=== PATIENT | female | born 1955 | race Caucasian/White ===

== ENCOUNTER 2017-02-18 10:34 | Observation (INO) | payer OTHER ==
[2017-02-18] VITALS (9 sets, daily range): BP systolic 114–150; BP diastolic 76–95; PULSE 14–107; RESP 14–26; O2SAT 95–98
[~2017-02-18] VITALS: Ht 168.9 cm; Wt 70.8 kg
[~2017-02-18 10:34] MED LIST: PIME30CR TP
--- NOTE | 2017-02-18 10:52 | ED.REPORT ---
HPI-Altered Mental Status Date of Service Feb 18, 2017 ED Provider: Lamine Rehman MD Patient is a 61 year old female who presents to the ED complaining of altered mental status. She was driving to work at 0900 this morning when she had an out of body experience. Around 0930 she tried to walk across the parking lot at work but could not due to R sided weakness that made her feel like she was going to fall. She has also had a headache for the last 3 days. She denies dizziness, numbness, vision loss, dysphagia, or any other symptoms. Per a co- worker, pt is normally very sharp and has not been herself. It was noted that she was leaning more to the L side this morning and has seemed confused. She has had a head cold for about a week. Nursing Notes Stated Complaint: UNSTEADY/CONFUSED Chief Complaint: General Complaint Nursing Notes Reviewed: Yes Allergies: Coded Allergies: No Known Drug Allergies (Verified Allergy, Unknown, 05/26/16) No Active Prescriptions or Reported Meds General Time Seen by MD: 10:51 Chief Complaint Not acting right Hx Obtained From: Patient Arrived By: Walk-in Sudden in Onset?: Yes Onset Occurred: 1 - 4 hours ago Similar Sx Previous: No Risk Factors TPA was excluded by [facility] due to ongoing R sided weakness prior to other neurological symptoms and a generally unclear story from the patient. TPA Administration/Criteria Stroke Thrombolytic Therapy : TPA Considered: Yes Neurologist Contacted: Yes Disc Risk/Benefit/Alternatives: Yes, No TPA Administered Intravenously: No, exclusion criteria Inclusion Criteria: Onset < 3hr before Tx, 18 years or older NIH Stroke Scale Level of Consciousness: Alert and responsive (0) Ask Month & Age: Both questions right (0) Open/Close Eyes/Hand Hand Salter: Performs both tasks (0) Horizontal EO Movements: None (0) Visual Gibson: No visual loss (0) Facial Palsy: Normal symmetry (0) Right Arm Motor Drift (10s): No drift 10 sec (0) Left Arm Motor Drift (10s): No drift 10 sec (0) Right Leg Motor Drift (5s): Drift, not touch bed (1) (Cannot lift against resistance ) Left Leg Motor Drift (5s): No drift 5 sec (0) Limb Ataxia FNF/Heel-Lugo: No ataxia (0) (some dysmetria) Sensation (Arms/Legs/Face): No sensory loss (0) Language Aphasia: No aphasia, normal (0) Dysarthria: No dysarthria, normal (0) Extinction/Inattention: No exctinct/inattent (0) NIHSS Score: 1 Time NIHSS Performed: 11:03 Date NIHSS Performed: Feb 18, 2017 )( IC Bleed Risk Strat Age (<1 yr or >60 yrs)No Blood thinners, No Coagulation disorder RF Statements: Risk factors reviewed )( SAH Risk Stratification No Anticoagulation therapy, No Hypertension RF Statements: Risk factors reviewed Past Medical History Past Medical History Healthy Past Surgical History Eye surgery Smoking History Former Smoker Social History Alcohol Use: "Social" Other Social History: Good social support Ambulatory Status Independent Review of Systems Eyes: Denies: Visual loss bilateral GI: Denies: Dysphagia Neurologic: Reports: Confusion, Headache, Problem walking, Weakness (R side ), Denies: Dizziness, Numbness Complete sys rev & neg: except as marked. Physical Exam Initial Vital Signs Vital Signs (First) Date Time Temp Pulse Resp B/P Pulse Ox O2 Delivery O2 Flow Rate FiO2 02/18/17 10:44 36.7 107 18 134/89 Room Air 02/18/17 11:00 96 Initial VS: Reviewed Abdomen / GI: Soft, Non-tender Skin: Warm, Dry Psychiatric: Mood/affect normal, Behavior normal, Normal thought content General/Constitutional: Awake, Alert, Well developed Head / Eyes: Atraumatic, Normocephalic, PERRL, EOMI Neck: Supple Respiratory / Chest: Atraumatic, Breath sounds NL, Breath sounds = bilat, No respiratory distress Cardiovascular: Heart rate NL, Regular rhythm, Heart sounds NL, Peripheral circulation NL Neurologic: Oriented X3, Speech NL Interpretation & Diagnostics Lab Results Interpretation Result Diagram: 02/18/17 1103 02/18/17 1103 Test 02/18/17 11:03 02/18/17 13:08 White Blood Count 10.0th/mm3 (3.8-10.1) Red Blood Count 4.54mil/mm3 (3.90-5.20) Hemoglobin 14.0g/dL (12.0-15.6) Hematocrit 41.5% (35.0-46.0) Mean Corpuscular Volume 91.4fL (81-100) Mean Corpuscular Hemoglobin 30.8pg (27.0-35.0) Mean Corpuscular Hemoglobin Concent 33.7% (32.0-37.0) Red Cell Distribution Width 12.8% (12.3-15.4) Platelet Count 308bil/L (150-400) Neutrophils (%) (Auto) 69.8% (40-74) Lymphocytes (%) (Auto) 19.1% (14-46) Monocytes (%) (Auto) 7.6% (4-12) Eosinophils (%) (Auto) 2.9% (0-5) Basophils (%) (Auto) 0.3% (0-3) Prothrombin Time 9.8sec (8.1-12.5) Prothromb Time International Ratio 0.92ratio Activated Partial Thromboplast Time 23.8sec (22.8-33.0) Sodium Level 138mEq/L (134-144) Potassium Level 4.4mEq/L (3.5-5.2) Chloride Level 100mEq/L (97-108) Carbon Dioxide Level 22mmol/L (18-29) Blood Urea Nitrogen 17mg/dL (8-27) Creatinine 0.55mg/dL (0.57-1.00) Estimat Glomerular Filtration Rate 160mL/min (>59) Glucose Level 94mg/dL (60-99) Calcium Level 9.5mg/dL (8.5-10.1) Total Bilirubin 0.3mg/dL (0.0-1.2) Aspartate Amino Transf (AST/SGOT) 18U/L (0-50) Alanine Aminotransferase (ALT/SGPT) 16U/L (0-32) Alkaline Phosphatase 82U/L (25-165) Troponin T < 0.010ug/L (0.0-0.011) Total Protein 7.5g/dL (6.4-8.4) Albumin 4.2g/dL (3.4-5.0) Urine Color Straw (YELLOW) Urine Appearance Clear (CLEAR,HAZY) Urine pH 6.0 (5.0-8.0) Urine Specific [place] <1.005 (1.003-1.035) Urine Protein Negativemg/dL (NEG,TRACE) Urine Glucose (UA) Negativemg/dL (NEGATIVE) Urine Ketones Negativemg/dL (NEGATIVE) Urine Occult Blood Negative (NEGATIVE) Urine Nitrite Negative (NEGATIVE) Urine Bilirubin Negative (NEGATIVE) Urine Urobilinogen Normalmg/dL (NORMAL) Urine Leukocyte Esterase Negative (NEGATIVE) Urine RBC 0-2/hpf (0-2) Urine WBC 0-5/hpf (0-5) Urine Epithelial Cells None/hpf (NONE-MOD) Urine Crystals None seen (NONE SEEN) Urine Bacteria None/hpf (NONE-FEW) Urine Hyaline Casts None/lpf (NONE) Urine Granular Casts None seen (NONE SEEN) Urine Waxy Casts None seen (NONE SEEN) Urine Red Blood Cell Casts None seen (NONE SEEN) Urine White Blood Cell Casts None seen (NONE SEEN) Urine Mucus None seen (None Seen) Urine Trichomonas None seen (NONE SEEN) Urine Yeast None (NONE SEEN) Urinalysis Comment None Urine Culture Reflexed Not indicated ECG Interpretation ECG Interpretation: Sinus rate [address], T changes Time: 11:37 Interpreted by: ED physician CT Head Interpretation CT BRAIN: IMPRESSION: No acute intracranial process. Findings were personally telephoned to Dr. Сергей Orr in the emergency department 1107 hrs. 02/18/17. Moderate left sphenoid sinus disease. This study fulfills neurological imaging criteria for inclusion or exclusion of acute stroke therapies based on available published neurological guidelines. Dictated by: Veto Hernandez M.D. on 02/18/2017 at 11:04 Approved by: Veto Hernandez M.D. on 02/18/2017 at 11:07 Study: Head CT no contrast Interpretation / Wet Read by: Interpret - Radiologist, Discussed w radiologist CT Chest Interpretation CT angio negative Study type: CT pulm angiogram Interpretation / Wet Read by: Discussed w radiologist Re-Eval/Medical Decision Med Decision/Clinical Course 61-year-old female presenting with right lower extremity weakness and confusion that started at 10:00 this morning. On further questioning she has had her right lower extremity weakness intermittently for the past month but felt like her leg was maybe buckling but unsure. Initially she was called a code stroke. Stroke scale was 1 with left lower extremity qapc-ny-xill dysmetria. Her strength of her right lower extremity is 4 out of 5. Spoke with gastroenterology who recommended no TPA given low stroke scale and questionable timing onset given her RLE weakness for one month. CT angiogram brain no acute pathology. Patient was ambulatory at time of admission. She was admitted for stroke workup. Re-Evaluation/Progress #1: Time of Eval: 11:23 Re-Evaluation/Progress Note: Despite patient not being able to lift R leg against resistance minutes prior, patient is walking about with a mild R sided limp. Re-Evaluation/Progress #2: Time of Eval: 11:43 )( Re-Eval Neurologic Exam: Alert Re-Evaluation/Progress Note: Discussed TPA administration with patient. She reports that she noticed some R leg weakness about a month before she started experiencing her other symptoms. Patient would like to contact her doctor before making a decision. Re-Evaluation/Progress #3: Time of Eval: 12:07 )( Re-Eval Neurologic Exam: Alert Re-Evaluation/Progress Note: Rechecked patient. Discussed Neurologist decision to exclude TPA due to chronic R leg weakness. Will do further lab work to exclude PE/DVT. Discussed this with pt's daughter per pt's request. Re-Evaluation/Progress #4: Time of Eval: 13:39 )( Re-Eval Neurologic Exam: Alert Re-Evaluation/Progress Note: Discussed plan for admission. Patient understands and agrees with plan. All questions addressed at this time. Consultation #1: Consulted With: Neurology Call Returned at: 11:14 [employer] Teacher: Agrees with eval, Agrees with plan Note: Discussed patient's case with [facility]. Would like leg strenth rechecked. Consultation #2: Call Returned at: 11:35 [employer] Mathematics Teacher: Agrees with eval, Agrees with plan Note: [facility] called back. Give option of TPA to patient. Consultation #3: Consulted With: Neurology Call Returned at: 11:58 Note: Discussed updated information on ongoing R sided weakness with [facility]. This excludes TPA administration. Consultation #4: Referral / Consult Name: Danyel Leon MD Consulted With: Hospitalist Call Returned at: 13:32 [employer] Mathematics Teacher: Will see patient, Agrees with eval, Agrees with plan, Accepts admit Note: Discussed patient's case. Accepts admit. Counseled Regarding: Diagnosis, Lab results, Need for admission Patient Discharge & Departure Impression: Primary Impression: Stroke CVA mechanism: unspecified Qualified Code: I63.9 - Cerebral infarction, unspecified Disposition: ADMITTED TO HOSPITAL Referrals: Sara Acevedo PA-C (PCP) Crit Care Except Billable Proc Time Spent: 30-74 minutes Services Performed: Patient management by me, Time spent at bedside, Reviewing test results, Reviewing imaging, Discussing patient care, Documentation in record, Time with fam/surrogate Scribe Attestation Portions of this note were transcribed by Salome Estevez. I, Dr. Rehman personally performed the history, physical exam and medical decision-making; I reviewed and confirmed the accuracy of the information in the transcribed note. Signed by: Salome Estevez 02/18/2017, 1340 copies to: Sara Acevedo PA-C, Ben M MD Feb 18, 2017 10:52 SALOME ESTEVEZ Feb 18, 2017 11:02
--- NOTE | 2017-02-18 11:09 | DRSVH ---
PROCEDURE: CT BRAIN (TPA) ([id number]) INDICATIONS: Stroke TECHNIQUE: Noncontrast 4.5 mm thick angled axial sections acquired from the foramen magnum to the vertex, with c oronal reformats. COMPARISON: None. FINDINGS: Image quality: Excellent. CSF spaces: Basal cisterns are patent. No extra-axial fluid collections. The ventricles are symmet khloe in size and shape. Brain: No intracranial bleeds or masses. There is cerebral volume loss for age, with resultant vent ricular and sulcal prominence. There are periventricular and deep white matter chronic small vessel ischemic changes. There is intracranial internal carotid artery atherosclerosis. Skull and face: Calvarium and visualized facial bones appear intact, without suspicious lesions. Sinuses: Moderate left sphenoid sinus disease IMPRESSION: No acute intracranial process. Findings were personally telephoned to Dr. Сергей Orr in the emergency department 1107 hrs. 02/18/17. Moderate left sphenoid sinus disease. This study fulfills neurological imaging criteria for inclusion or exclusion of acute stroke therapie s based on available published neurological guidelines. Dictated by: Veto Hernandez M.D. on 02/18/2017 at 11:04 Approved by: Veto Hernandez M.D. on 02/18/2017 at 11:07
[2017-02-18 11:10] LABS: BASOPHILS % (AUTO) 0.3 % (0-3); EOSINOPHILS % (AUTO) 2.9 % (0-5); MONOCYTES % (AUTO) 7.6 % (4-12); Mean Corpuscular Hemoglobin 30.8 pg (27.0-35.0); Mean Corpuscular Volume 91.4 fL (81-100); NEUTROPHILS % (AUTO) 69.8 % (40-74); Platelet Count 308 bil/L (150-400)
[2017-02-18 11:28] LABS: INR 0.92 ratio
[2017-02-18 11:56] LABS: TROPONIN T < 0.010 ug/L (0.0-0.011)
--- NOTE | 2017-02-18 12:55 | NUR ---
Evaluation completed. Please go to "Notes" then click on "Assessments and Notes" (bottom left corner of screen). Then select appropriate discipline tab on top of screen.
[2017-02-18] MEDS ORDERED: Alum-Mag Hydrox-Simeth 30 mL Suspension PO PRN ×2 (13:40→16:55)
[2017-02-18] MEDS ORDERED: Ondansetron 2 mg/mL 2 mL Inj IVPUSH PRN (13:40)
[2017-02-18 14:13] LABS: APPEARANCE,URINE CLEAR (CLEAR,HAZY); COLOR,URINE STRAW (YELLOW); OCCULT BLOOD,URINE NEGATIVE (NEGATIVE); UROBILINOGEN,URINE NORMAL (NORMAL)
--- NOTE | 2017-02-18 15:21 | NUR ---
Admission Patient admitted to the floor at 1440 from the ED. Admission questions and Med list accomplished by admit nurse. vitals t-36.8, bp-142/84, p-76, rr-19, 02-96 RA. Oriented patient to the floor, placed bed in lowest position and call light within reach. Patient complain of 0/10 pain.
[2017-02-18] MEDS ORDERED: Ondansetron 2 mg/mL 2 mL Inj IV PRN (16:55)
[2017-02-18] MEDS ORDERED: Polyethylene Glycol (PEG) 17 Gm Powder PO PRN (16:55)
[2017-02-18] MEDS ORDERED: 0.9% Sodium Chloride 500 ML IV STA (17:30)
--- NOTE | 2017-02-18 18:36 | HP ---
[address] [address] HISTORY AND PHYSICAL PATIENT: ABBY LINDSAY : 1955 MR#: [id number] ADMIT: 02/18/2017 JOB ID: [id number] PRIMARY CARE PROVIDER: Sara Acevedo PA-C Patient admitted from ED, observational status, Blue Team. CHIEF COMPLAINT: Weakness, disequilibrium. HISTORY OF PRESENT ILLNESS: This is a 61-year-old female, who has been sick for about 10 days with URI-type symptoms, congestion, a little sinus pressure, a little cough, sore throat. She went to work this morning. She woke up. She is feeling okay. Just before she got to the parking lot, she felt a little bit funny, and when she got out of the car, she felt weak and weird. She said she felt like she was in " tunnel," having an out-of-body experience. Both legs felt weak and wobbly like noodles, but she also described like a clumsy feeling like she was having trouble with her disequilibrium. She is having trouble with her balance almost. One of her co-workers saw her, brought her over, sat her down. She sat there for a while. The co-worker wanted to call an ambulance. She did not want to, so she sat there for a while and then her co-worker came back and she was still feeling the same way, so she agreed to be driven here to the emergency department. She had these symptoms kind of gradually resolve over an hour or two and now she is back to baseline. In the emergency department, our ED physician noticed a little bit of difficulty with finger pointing on the left side, but otherwise the exam was pretty unremarkable. He asked me to admit patient for possible stroke. The patient has never had anything like this before. She has had a little bit of headache on and off and she attributes this to some sinus issues related to her cold. No nausea, vomiting, chest pain, palpitations, diarrhea, etc. REVIEW OF SYSTEMS: Complete review of systems obtained, all pertinent findings in HPI above, rest review of systems are negative. PAST MEDICAL HISTORY: 1. Cataract on the right. 2. Retinal tear laser therapy. MEDICINES: Ibuprofen p.r.n. ALLERGIES: None. SOCIAL HISTORY: Lives alone. Does not smoke. Drinks maybe four times a week, two or three glasses of wine. FAMILY HISTORY: Father had an RI at an older age. There are no other strokes or cardiovascular disease in her family. PHYSICAL EXAMINATION: Afebrile. Heart rate 76, blood pressure 142/84, O2 sats 96% on room air. Patient is alert. No complaints. Skin is warm and dry. Eyes: PERRLA. EOMs intact. No nystagmus. Zevhlk-dv-kzgw, hpzd-ev-zkoy looks basically okay, equal bilaterally. Romberg negative. Motor strength, seems equal bilaterally. Extension/flexion of elbows and wrists seems normal. Extension/flexion of knees and ankles, strength also appears normal. There is no pronator drift. Patellar reflexes are 2+ bilaterally and equal. Eyes: PERRLA. EOMs intact. Mouth shows adequate hydration. No JVD. No bruits. Cardiac: Regular, no murmurs. Lungs clear to auscultation and percussion. Abdomen soft, nonacute, benign. Extremities: Showed no clubbing, cyanosis, edema. DIAGNOSIS: 1. Possible transient ischemic attack, present on admission. Active. At this time, the patient will be monitored here in the hospital on telemetry looking for arrhythmias and AFib. She will be started on a baby aspirin. Will also order an MRI/MRA stroke protocol for tonight and that will be reviewed in the morning. 2. Upper respiratory tract infection present on admission. Active. Will obtain a chest x-ray and get a respiratory PCR. CODE STATUS: FULL CODE.
--- NOTE | 2017-02-18 18:46 | NUR ---
Bolus NS-500ml Gave Patient NS-500ml Bolus per Dr. Hamilton's orders at 1730 but EMR put a stop date at 1731 so was unable to scan it on EMR. Talked to Pharmacy - told to just put a note on the patient's records.
[2017-02-19 00:17] VITALS: BP 110/71; PULSE 68; RESP 18; O2SAT 96
[2017-02-19 05:55] VITALS: BP 110/76; PULSE 63; RESP 18; O2SAT 95
--- NOTE | 2017-02-19 05:59 | DRSVH ---
PROCEDURE: CT ANGIO BRAIN NECK TPA INDICATIONS: STAT READ - CALL ED PROVIDER W/RESULTS TECHNIQUE: Pre-contrast 4.5 mm thick sections acquired from the foramen magnum to the vertex. After the adminis tration of intravenous contrast, 1 mm thick sections acquired from the aortic arch through the [place]. Post-contrast 4.5 mm thick sections then re-acquired from the foramen magnum to the vert ex. 3-dimensional doozmka-zpndooyyl-rbktuhlkpt (MIP) and/or volume rendering reformats were acquired of the central intracranial vasculature and neck separately. For radiation dose reduction, the foll owing was used: automated exposure control, adjustment of mA and/or kV according to patient size. COMPARISON: None. FINDINGS: Image quality: Excellent. BRAIN: CSF spaces: Ventricles are normal in size and shape. Basal cisterns are patent. No extra-axial flu id collections. Brain: No midline shift. No intracranial bleeds or masses. Gorman-white matter interface appears int act. Skull and face: Calvarium and facial bones appear intact, without suspicious lesions. Orbits appear normal. Sinuses: Sinuses and mastoids are clear. HEAD CT ANGIOGRAPHY: Anterior circulation: Intracranial internal carotid arteries are normal in size and flow. The flow within the paired anterior cerebral arteries is normal and symmetric. The flow within the middle cer ebral arteries is normal and symmetric. The anterior communicating artery is seen. No aneurysms are seen. Posterior circulation: Visualized portions of the vertebral arteries demonstrate normal caliber, and join to form a normal appearing basilar artery. Flow within the posterior cerebral arteries is norm al and symmetric. No aneurysms are seen. NECK CT ANGIOGRAPHY: Carotid system: The great vessels demonstrate a conventional anatomy as they arise from the aortic a rch. The origins of the common carotid arteries appear patent. The common carotid arteries demonstr ate normal caliber and courses. The bifurcation regions are both widely patent. The internal caroti d arteries demonstrate normal calibers and courses. Posterior circulation: The origins of the vertebral arteries both appear widely patent. The more sandoval perior extracranial portions of both vertebral arteries also demonstrate normal courses and calibers. They join to form a normal appearing basilar artery. Soft tissues: Visualized neck soft tissues demonstrate no suspicious abnormalities. Bones: No suspicious bony lesions. Visualized cervical spine appears normally aligned. Bilateral ma xillary sinus disease. IMPRESSION: No occlusion or stenosis identified. 5 mm left thyroid nodule. Further assessment with dedicated ultrasound could be performed as clinical ly warranted. Bilateral maxillary sinus disease. Findings were personally telephoned to the emergency department staff who will relay them to Dr. Karri JORGENSEN, and call back if any questions, 1304 hrs. 02/18/17. Dictated by: Veto Hernandez M.D. on 02/18/2017 at 12:55 Approved by: Veto Hernandez M.D. on 02/18/2017 at 13:05
--- NOTE | 2017-02-19 06:01 | DRSVH ---
PROCEDURE: X-RAY CHEST ONE VIEW, PORTABLE ([id number]) INDICATIONS: cough and congestion 10 days TECHNIQUE: One view of the chest was acquired. COMPARISON: None. FINDINGS: Surgical changes and devices: None. Lungs and pleura: No pleural effusions or pneumothorax. Lungs are clear. Mediastinum: Mediastinal contours appear normal. Heart size is normal. Bones and chest wall: No suspicious bony lesions. Overlying soft tissues appear unremarkable. IMPRESSION: No acute disease Dictated by: Veto Hernandez M.D. on 02/18/2017 at 18:00 Approved by: Veto Hernandez M.D. on 02/18/2017 at 18:00
--- NOTE | 2017-02-19 07:33 | NUR ---
Neuro, Cough, Congestion: Neuro within normal limits through the night. Strength/anesthesiologist and critical care equal, steady on feet. Denies feeling lightheaded when up. Pt requested something for her cough; ordered Testerrieon [place]. Pt stated improvement with this overnight. Medicated for "sinus headache" this morning upon waking. Lab called regarding the status of viral PCR, they stated not having the sample in lab, another one was sent this morning.
--- NOTE | 2017-02-19 08:06 | NUR ---
transferred to MRI Patient transferred to MRI at 0806.
[2017-02-19 10:31] VITALS: BP 108/76; PULSE 80; RESP 15; O2SAT 98
[2017-02-19 10:39] VITALS: PULSE 70
--- NOTE | 2017-02-19 10:54 | NUR ---
Evaluation completed. Please go to "Notes" then click on "Assessments and Notes" (bottom left corner of screen). Then select appropriate discipline tab on top of screen.
--- NOTE | 2017-02-19 12:03 | DRSVH ---
PROCEDURE: MRI STROKE PROTOCOL ([id number]) Pre- and post-contrast brain MRI, non-contrast brain MR angiogram, pre- and postcontrast neck MR adrienne ogram INDICATIONS: leg weakness r>l, some disequilibrium TECHNIQUE: Brain: Noncontrast axial T1 spin echo, axial T2 fast spin echo, sagittal and axial FLAIR, coronal T2 fast spin echo, axial gradient echo, axial diffusion and ADC through the brain. After the administr ation of contrast, axial 3D VIBE of the cranial vasculature and brain. Brain MRA: Non-contrast 3-D time of flight MR angiogram, with multiple kevsohk-sovdeqxng-zqkofhhkgd (MIP) reformats performed. Neck MRA: Axial and sagittal TruFISP through the neck. Coronal dynamic MR angiogram during administ ration of contrast in the arterial and venous phases, with 3-dimenstional vhpigre-vuiiigvce-voitqnoor n (MIP) reformats constructed from subtraction images. COMPARISON: None. FINDINGS: Image quality: Excellent. BRAIN: CSF spaces: Ventricles are normal in size and shape. Basal cisterns are patent. No extra-axial flu id collections. Brain: No intracranial bleeds or mass effects. Gorman-white matter interface is normal. Diffusion we ighted images show no acute ischemic insults. Brainstem appears normal. Normal intravascular flow v oids are present. No abnormal intracranial enhancement. Skull and face: Calvarial marrow signal is normal. Orbits appear normal. Sinuses: Mucosal thickening noted in the maxillary sinuses and the sphenoid sinuses. The mastoids are clear. BRAIN MR ANGIOGRAM: Anterior circulation: Intracranial internal carotid arteries are normal in size and enhancement. Th e flow within the paired anterior cerebral arteries is normal and symmetric. The flow within the mid dle cerebral arteries is normal and symmetric. The anterior communicating artery is seen. No stenos es, occlusions, or aneurysms. Posterior circulation: The visualized portions of the vertebral arteries demonstrate normal caliber, and join to form a normal appearing basilar artery. The flow within the posterior cerebral arteries is normal and symmetric. No stenoses, occlusions, or aneurysms. NECK MR ANGIOGRAM: Carotids: Great vessels demonstrate a conventional anatomy as they arise from the aortic arch. The origins of the common carotid arteries appear patent. The calibers and courses of both common caroti d arteries are normal. The bifurcation regions appear normal bilaterally. The internal carotid reginaldo kadeem demonstrate normal course and caliber. Posterior circulation: The origins of the vertebral arteries appear patent. More superior portions of both vertebral arteries demonstrate normal course and caliber, and join to form a normal appearing basilar artery. Miscellaneous: Subclavian arteries appear patent. Pre-contrast images through the neck show no soft tissue abnormalities. IMPRESSION: BRAIN MRI: 1. No acute intracranial disease process. 2. No areas of acute or chronic infarction. 3. Minimal periventricular and subcortical white matter chronic microvascular ischemic changes. 4. Bilateral maxillary and sphenoid sinus mucosal thickening. Please correlate with clinical findings . BRAIN MR ANGIOGRAM: Negative examination. NECK MR ANGIOGRAM: Negative examination. The estimate of stenosis included in the report of the imaging study was calculated using the NASCET method Dictated by: Sarah Escalera MD, PhD on 02/19/2017 at 11:26 Approved by: Sarah Escalera MD, PhD on 02/19/2017 at 12:01
--- NOTE | 2017-02-19 12:37 | DRSVH ---
[facility] [address] [place] [address] Echocardiogram Report Name: ABBY LINDSAY RStudy Date : 02/19/2017 Height: 66 in Hospital Exam Location: [facility] Weight: 156 lb Gender: Female BSA: 1.8 m2 : 1955 Age: 61 yrs BP: 108/76 mmHg Reason For Study: TIA Ordering Physician: Performed By: Brigitte Zhong Referring Physician: Sara Acevedo Interpretation Summary 1) Normal left ventricular thickness, size, wall motion, and systolic function (EF 55-60%). 2) Normal right ventricular size and function. 3) No significant valvular abnormalities. 4) No inter-atrial shunt based on color doppler. 5) No prior Echo available for comparison. Procedure: A two-dimensional transthoracic echocardiogram with color flow and Doppler was performed. The study quality was technically adequate. There is no prior echocardiogram noted for this patient. The patient was in normal sinus rhythm during the exam. Left Ventricle: The left ventricle is normal in size, wall thickness, and systolic function without any focal wall motion abnormalities. The ejection fraction is estimated to be 55-60%. Assessment of diastolic parameters indicates a relaxation abnormality of the left ventricle, consistent with normal filling pressures. Right Ventricle: The right ventricle is normal in size and function. Atria: The left atrial size is normal. Right atrial size is normal. The interatrial septum is intact with no evidence for an atrial septal defect. Mitral Valve: The mitral valve is normal in structure and function. There is trace mitral regurgitation. Aortic Valve: The aortic valve is normal in structure and function. There is no aortic valve stenosis. No aortic regurgitation is present. Tricuspid Valve: The tricuspid valve is normal in structure and function. There is mild tricuspid regurgitation. The right ventricular systolic pressure is estimated at 25 mmHg assuming a right atrial pressure of 3 mm Hg. Pulmonic Valve: The pulmonic valve is normal in structure and function. There is a trace or physiologic amount of pulmonic regurgitation. Great Vessels: The aortic root is normal size. The dimensions of the ascending aorta are normal. The aortic arch is normal in size. The IVC is of normal diameter and collapses greater than 50% with a sniff. This suggests a low right atrial pressure of 3 mm Hg. Pericardium/ Pleura There is no pericardial effusion. There is no pleural effusion. MMode/2D Measurements & Calculations LVIDd: 4.5 cm RA long axis LVOT diam: 2.1 cm LVIDs: 2.9 cm LA A2 area: 18.1 cm Ao root diam FS: 35.0 % LA A4 area: 16.6 cm RA area IVSd: 0.72 cm LA length (vol) Aortic Jxn: 2.6 cm LVPWd: 0.96 cm : 14.6 cm asc Aorta Diam LA vol: 49.7 ml RA vol LA vol index : 38.7 ml Ao Arch Diam (Prox RA Trans): 2.6 cm : 21.5 mm2 IVC diam: 2.0 cm LV barraza. diameter/BSA LV sys. diameter/BSA RVD1 (basal) RVD2 (mid): 2.0 cm (cm/m^2): 2.5 (cm/m^2): 1.6 Doppler Measurements & Calculations Ao V2 max MV E max jason MV E/A: 0.78 TR max jason : 131.0 cm/sec : 55.1 cm/sec Med Peak E' Jason : 234.6 cm/sec Ao max PG MV A max jason TR max PG : 6.9 mmHg : 70.6 cm/sec E/E' med: 9.2 : 22.0 mmHg Ao mean PG MV P1/2t: 61.6 msec Lat Peak E' Jason PA V2 max : 76.2 cm/sec LVOT Max Jason E/E' lat: 6.9 PA mean PG : 85.3 cm/sec E/e' average: 8.1 Pulm A Revs Dur PA Accel Time BIN(I,D): 2.2 cm : 0.13 sec sev ratio MV A dur: 0.10 sec MV dec time MV P1/2t max jason Ao V2 mean LV V1 max PG : 0.21 sec : 101.3 cm/sec MVA(P1/2t): 3.6 cm2 Ao V2 VTI: 28.6 cm LV V1 VTI BIN(V,D): 2.3 cm2 : 17.8 cm PA V2 mean BIN indexed to KARMEN Cutlers Dur - MV A : 54.2 cm/sec (cm^2/m^2): 1.2 Dur: 0.00 msec Reading Physician:12:36 PM
[2017-02-19] MEDS ORDERED: ASPI81TA3 PO (12:51)
--- NOTE | 2017-02-19 12:56 | PCM.DIMED ---
Discharge Instructions Date of Service Feb 19, 2017 Dates of Hospitalization Feb 18, 2017 at 14:01 Discharge Diagnosis Discharge Diagnosis 1. Acute and transient weakness and disequilibrium of unclear exact etiology but possibly due to transient ischemic attack (TIA) vs due to upper respiratory infection, present on admission. Improved 2. Possible viral upper respiratory tract infection, present on admission. Diet No restrictions Activity No restrictions Call your provider Fever or Chills, Shortness of breath, Chest pain, Excessive diarrhea, Weakness ( unilateral) Patient Instructions Seek immediate medical attention if any new or worsening signs or symptoms occur. Follow-up plan 1. Followup with primary care provider 3-7 days Follow-up Provider: Sara Acevedo PA-C, [place]oud Feb 19, 2017 12:56
--- NOTE | 2017-02-19 13:02 | NUR ---
Social Work - Brief Note/Readiness for discharge Data: EMR reviewed. Pt is a 61 y/o female admitted 02/18/17 for CVA. Pt likley to discharge later today per morning rounds, and is up and independent in the room. Insurance is [employer] and PCP is Sara Acevedo PA-C. SW resides at home alone and is independent at baseline. SW met with pt to confirm discharge plan. Pt's family to provide transport home. No needs assessed at this time. SW will continue to follow. Assessment: Pt who is independent at baseline. Plan: Pt to discharge home via POV, no needs. SW will continue to follow. DAVID Renner
--- NOTE | 2017-02-19 14:03 | NUR ---
Discharge Patient discharge to home with all belongings. Explained to patient new medication (aspirin), when next medication is due and discharge instructions. Patient verbalized understanding. Dc'd IV intact. Dc'd telemetry. Vitals stable. Patient left floor on her own feet accompanied by boyfriend with no signs of distress.
--- NOTE | 2017-02-21 19:19 | PCM.DC.MED ---
Discharge Summary Date of Service Feb 21, 2017 Dates of Hospitalization Date of Hospital Admission Feb 18, 2017 at 14:01 Date of Discharge: Feb 20, 2017 Providers: Admitting Physician: Danyel Leon MD Primary Care Physician: Sara Acevedo PA-C Attending Physician: Danyel Leon MD Diagnosis at Time of Discharge Diagnosis at Time of Discharge 1. Acute and transient weakness and disequilibrium of unclear exact etiology but possibly due to transient ischemic attack (TIA) vs due to upper respiratory infection, present on admission. Improved 2. Possible viral upper respiratory tract infection, present on admission. Procedures XRay, CTs & MRIs Date of Service: 02/18/17 1051 PROCEDURE: CT BRAIN (TPA) ([id number]) IMPRESSION: No acute intracranial process. Findings were personally telephoned to Dr. Сергей Orr in the emergency department 1107 hrs. 02/18/17. Moderate left sphenoid sinus disease. This study fulfills neurological imaging criteria for inclusion or exclusion of acute stroke therapies based on available published neurological guidelines. Dictated by: Veto Hernandez M.D. on 02/18/2017 at 11:04 Approved by: Veto Hernandez M.D. on 02/18/2017 at 11:07 Date of Service: 02/18/17 1138 PROCEDURE: CT ANGIO BRAIN NECK TPA IMPRESSION: No occlusion or stenosis identified. 5 mm left thyroid nodule. Further assessment with dedicated ultrasound could be performed as clinically warranted. Bilateral maxillary sinus disease. Findings were personally telephoned to the emergency department staff who will relay them to Dr. Сергей Pearson [facility], and call back if any questions, 1304 hrs. 02/18/17. Dictated by: Veto Hernandez M.D. on 02/18/2017 at 12:55 Approved by: Veto Hernandez M.D. on 02/18/2017 at 13:05 Date of Service: 02/19/17 1657 PROCEDURE: MRI STROKE PROTOCOL ([id number]) IMPRESSION: BRAIN MRI: 1. No acute intracranial disease process. 2. No areas of acute or chronic infarction. 3. Minimal periventricular and subcortical white matter chronic microvascular ischemic changes. 4. Bilateral maxillary and sphenoid sinus mucosal thickening. Please correlate with clinical findings. BRAIN MR ANGIOGRAM: Negative examination. NECK MR ANGIOGRAM: Negative examination. The estimate of stenosis included in the report of the imaging study was calculated using the NASCET method Dictated by: Sarah Escalera MD, PhD on 02/19/2017 at 11:26 Approved by: Sarah Escalera MD, PhD on 02/19/2017 at 12:01 Cardiac Echo Impression Date of Service: 02/19/17 1104 Echocardiogram Report Interpretation Summary 1) Normal left ventricular thickness, size, wall motion, and systolic function (EF 55-60%). 2) Normal right ventricular size and function. 3) No significant valvular abnormalities. 4) No inter-atrial shunt based on color doppler. 5) No prior Echo available for comparison. Reading Physician:12:36 PM Brief History As noted in H&P by Dr. Leon: This is a 61-year-old female, who has been sick for about 10 days with URI-type symptoms, congestion, a little sinus pressure, a little cough, sore throat. She went to work this morning. She woke up. She is feeling okay. Just before she got to the parking lot, she felt a little bit funny, and when she got out of the car, she felt weak and weird. She said she felt like she was in " tunnel," having an out-of-body experience. Both legs felt weak and wobbly like noodles, but she also described like a clumsy feeling like she was having trouble with her disequilibrium. She is having trouble with her balance almost. One of her co-workers saw her, brought her over, sat her down. She sat there for a while. The co-worker wanted to call an ambulance. She did not want to, so she sat there for a while and then her co-worker came back and she was still feeling the same way, so she agreed to be driven here to the emergency department. She had these symptoms kind of gradually resolve over an hour or two and now she is back to baseline. In the emergency department, our ED physician noticed a little bit of difficulty with finger pointing on the left side, but otherwise the exam was pretty unremarkable. He asked me to admit patient for possible stroke. The patient has never had anything like this before. She has had a little bit of headache on and off and she attributes this to some sinus issues related to her cold. No nausea, vomiting, chest pain, palpitations, diarrhea, etc. Hospital Course patient's hospital course was essentially unremarkable. Her symptoms completely resolved over night and she was demanding to be discharged home in the morning as soon as possible. It's not totally clear if her presenting symptoms were TIA or not but she will be discharged home with low dose aspirin daily with recommendation for close followup with primary care provider. Exam Vital Signs (Last) Date Time Temp Pulse Resp B/P Pulse Ox O2 Delivery O2 Flow Rate FiO2 02/19/17 10:39 70 02/19/17 10:31 36.7 15 108/76 98 Room Air Test 02/18/17 11:03 02/18/17 13:08 White Blood Count 10.0th/mm3 (3.8-10.1) Red Blood Count 4.54mil/mm3 (3.90-5.20) Hemoglobin 14.0g/dL (12.0-15.6) Hematocrit 41.5% (35.0-46.0) Mean Corpuscular Volume 91.4fL (81-100) Mean Corpuscular Hemoglobin 30.8pg (27.0-35.0) Mean Corpuscular Hemoglobin Concent 33.7% (32.0-37.0) Red Cell Distribution Width 12.8% (12.3-15.4) Platelet Count 308bil/L (150-400) Neutrophils (%) (Auto) 69.8% (40-74) Lymphocytes (%) (Auto) 19.1% (14-46) Monocytes (%) (Auto) 7.6% (4-12) Eosinophils (%) (Auto) 2.9% (0-5) Basophils (%) (Auto) 0.3% (0-3) Prothrombin Time 9.8sec (8.1-12.5) Prothromb Time International Ratio 0.92ratio Activated Partial Thromboplast Time 23.8sec (22.8-33.0) Sodium Level 138mEq/L (134-144) Potassium Level 4.4mEq/L (3.5-5.2) Chloride Level 100mEq/L (97-108) Carbon Dioxide Level 22mmol/L (18-29) Blood Urea Nitrogen 17mg/dL (8-27) Creatinine 0.55mg/dL (0.57-1.00) Estimat Glomerular Filtration Rate 160mL/min (>59) Glucose Level 94mg/dL (60-99) Calcium Level 9.5mg/dL (8.5-10.1) Total Bilirubin 0.3mg/dL (0.0-1.2) Aspartate Amino Transf (AST/SGOT) 18U/L (0-50) Alanine Aminotransferase (ALT/SGPT) 16U/L (0-32) Alkaline Phosphatase 82U/L (25-165) Troponin T < 0.010ug/L (0.0-0.011) Total Protein 7.5g/dL (6.4-8.4) Albumin 4.2g/dL (3.4-5.0) Urine Color Straw (YELLOW) Urine Appearance Clear (CLEAR,HAZY) Urine pH 6.0 (5.0-8.0) Urine Specific [place] <1.005 (1.003-1.035) Urine Protein Negativemg/dL (NEG,TRACE) Urine Glucose (UA) Negativemg/dL (NEGATIVE) Urine Ketones Negativemg/dL (NEGATIVE) Urine Occult Blood Negative (NEGATIVE) Urine Nitrite Negative (NEGATIVE) Urine Bilirubin Negative (NEGATIVE) Urine Urobilinogen Normalmg/dL (NORMAL) Urine Leukocyte Esterase Negative (NEGATIVE) Urine RBC 0-2/hpf (0-2) Urine WBC 0-5/hpf (0-5) Urine Epithelial Cells None/hpf (NONE-MOD) Urine Crystals None seen (NONE SEEN) Urine Bacteria None/hpf (NONE-FEW) Urine Hyaline Casts None/lpf (NONE) Urine Granular Casts None seen (NONE SEEN) Urine Waxy Casts None seen (NONE SEEN) Urine Red Blood Cell Casts None seen (NONE SEEN) Urine White Blood Cell Casts None seen (NONE SEEN) Urine Mucus None seen (None Seen) Urine Trichomonas None seen (NONE SEEN) Urine Yeast None (NONE SEEN) Urinalysis Comment None Urine Culture Reflexed Not indicated Discharge Medications Discharge Medications Aspirin Chew (Aspirin Chew) 81 Mg Chew 81 MG PO DAILY Prescribed by: SEBASTIAN REEVES MD Followup Plan Disposition: Home Follow-up plan 1. Followup with primary care provider 3-7 days Discharge Diet: No restrictions Discharge Activity: No restrictions Patient Instructions Seek immediate medical attention if any new or worsening signs or symptoms occur. Follow-up Provider: Sara Acevedo PA-C Time spent 30 min copies to: Sara Acevedo PA-C, [place] Feb 21, 2017 19:19
== END 2017-02-19 13:08 | disposition home or self-care (01) ==
LOC: SED 10:34 → MPC 14:01
PROVIDERS: ADMIT Hospitalist; ATTEND Hospitalist
DX: R53.1 Weakness (principal); E87.8 Other disorders of electrolyte and fluid balance, not elsewhere classified; G45.9 Transient cerebral ischemic attack, unspecified; J06.9 Acute upper respiratory infection, unspecified; Z79.82 Long term (current) use of aspirin
CPT/HCPCS: 36415; 70450; 70496; 70498; 70549; 70553; 71010; 80053; 81000; 82948; 84484; 85025; 85610; 85730; 87633; 92610; 93005; 97161; 99291; A9585; C8929; G0378; Q9967